=== PATIENT | female | born 1955 | race Caucasian/White ===

== ENCOUNTER 2019-04-04 21:50 | Emergency (ER) | payer MEDICARE, OTHER ==
[2019-04-04 22:38] LABS: Appearance CLEAR (CLEAR); Bilirubin NEGATIVE (NEGATIVE); Blood LARGE Ery/ul (0-5); Glucose NEGATIVE (NEGATIVE); Ketones NEGATIVE (NEGATIVE); Leukocyte Esterase MODERATE (NEGATIVE); Mucus SLIGHT /HPF (NEGATIVE); Nitrite NEGATIVE (NEGATIVE); Protein,Urine Dip NEGATIVE (Negative); Specific Gravity 1.004 (1.005-1.025); Urobilinogen NEGATIVE mg/dL (0-1); WBC 26-50 /HPF (0-5)
[2019-04-04 22:44] VITALS: PULSE 67; O2SAT 100
[2019-04-04 23:02] VITALS: BP 137/80
--- NOTE | 2019-04-04 23:04 | ERPHSYRPT ---
- History of Present Illness Time Seen by Provider: 04/04/19 21:53 Source: patient Exam Limitations: no limitations Patient Subjective Stated Complaint: pt states at 1999 pt began having urgency, frequency, burning and fullness of urination, pt states that the last 30 minutes there has been an increase in symptoms, pt states that she has IBS and had flare up, pt states that she has had poor oral intake Triage Nursing Assessment: pt ambulated into the er, pt is axo x3, c/o burning, frequency, urgency and pain when urinating, urine clear yellow color, pt states 3/10 pain with urination, no distention to abdomen, abdomen soft Physician History: Pt with dysuria and malaise today. hx of same many years ago. NO fever of abd pain or flank pain. Timing/Duration: today Activites at Onset: none Quality: burning, cramping Onset Location: urethral Pain Radiation: none Severity of Pain-Max: moderate Severity of Pain-Current: mild Prior abdominal problems: similar symptoms (UTI) Sexual intercourse history: non-contributory Modifying Factors: Improves With: urinating Associated Symptoms: urinary frequency Allergies/Adverse Reactions: latex Allergy (Verified 04/04/19 22:14) Sulfa (Sulfonamide Antibiotics) Allergy (Verified 04/04/19 22:14) Hx Tetanus, Diphtheria Vaccination/Date Given: No (unknown) Hx Influenza Vaccination/Date Given: Yes Hx Pneumococcal Vaccination/Date Given: Yes - Review of Systems Constitutional: No Fever, No Chills Eyes: No Symptoms Ears, Nose, & Throat: No Symptoms Respiratory: No Cough, No Dyspnea Cardiac: No Chest Pain, No Edema, No Syncope Abdominal/Gastrointestinal: No Abdominal Pain, No Nausea, No Vomiting, No Diarrhea Genitourinary Symptoms: Dysuria, Frequency, Urgency Musculoskeletal: No Back Pain, No Neck Pain Skin: No Rash Neurological: No Dizziness, No Focal Weakness, No Sensory Changes Psychological: No Symptoms Endocrine: No Symptoms All Other Systems: Reviewed and Negative - Past Medical History Pertinent Past Medical History: Yes Neurological History: No Pertinent History Cardiac History: No Pertinent History Respiratory History: No Pertinent History Endocrine Medical History: No Pertinent History Musculoskeletal History: No Pertinent History - Past Surgical History Past Surgical History: Yes Musculoskeletal: Orthopedic Surgery Other Surgical History: back surgery, foot surgery, femur surgery - Social History Smoking Status: Never smoker Exposure to second hand smoke: Yes (years ago) Drug Use: none Patient Lives Alone: No - Female History Hx Now: No - Nursing Vital Signs Nursing Vital Signs: Initial Vital Signs Temperature 97.8 F 04/04/19 21:54 Pulse Rate 90 04/04/19 21:54 Respiratory Rate 16 04/04/19 21:54 Blood Pressure 158/96 04/04/19 21:54 O2 Sat by Pulse Oximetry 99 04/04/19 21:54 Pain Scale Pain Intensity 3 - Physical Exam General Appearance: no apparent distress, alert Eye Exam: PERRL/EOMI, eyes nml inspection Ears, Nose, Throat Exam: normal ENT inspection, TMs normal, pharynx normal, moist mucous membranes Neck Exam: normal inspection, non-tender, supple, full range of motion Respiratory Exam: normal breath sounds, lungs clear, No respiratory distress Cardiovascular Exam: regular rate/rhythm, normal heart sounds, normal peripheral pulses Gastrointestinal/Abdomen Exam: soft, No tenderness, No mass Pelvic Exam: deferred Rectal Exam: deferred Back Exam: normal inspection, normal range of motion, No CVA tenderness, No vertebral tenderness Extremity Exam: normal inspection, normal range of motion, pelvis stable Neurologic Exam: alert, oriented x 3, cooperative, 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, normal mood/affect, sensation nml, No motor deficits Skin Exam: normal color, warm, dry Lymphatic Exam: No adenopathy SpO2: 100 Ordered Tests: Active Orders 24 hr Category Date Time Status CULTURE,URINE Stat Lab 04/04/19 22:18 Received UA W/RFX UR CULTURE Stat Lab 04/04/19 22:18 Completed Medication Summary Generic Name Dose Route Start Last Admin Trade Name Freq PRN Reason Stop Dose Admin Phenazopyridine HCl 200 mg 04/05/19 23:19 Pyridium 200 Mg PO 04/05/19 23:20 ONCE ONE Discontinued Medications Generic Name Dose Route Start Last Admin Trade Name Freq PRN Reason Stop Dose Admin Nitrofurantoin Macrocrystals 100 mg 04/04/19 23:19 Macrobid 100mg Capsule PO 04/04/19 23:20 STAT ONE Lab/Rad Data: Laboratory Results 04/04/19 Range/Units 22:18 Urine Color STRAW (YELLOW) Urine Appearance CLEAR (CLEAR) Urine pH 7.0 (5-6) Ur Specific [place] 1.004 (1.005-1.025) Urine Protein NEGATIVE (Negative) Urine Ketones NEGATIVE (NEGATIVE) Urine Blood LARGE (0-5) Les/ul Urine Nitrite NEGATIVE (NEGATIVE) Urine Bilirubin NEGATIVE (NEGATIVE) Urine Urobilinogen NEGATIVE (0-1) mg/dL Ur Leukocyte Esterase MODERATE (NEGATIVE) Urine WBC (Auto) 26-50 (0-5) /HPF Urine RBC (Auto) NONE (0-2) /HPF U Epithel Cells (Auto) NONE (FEW) /HPF Urine Bacteria (Auto) NONE (NEGATIVE) /HPF Urine Mucus (Auto) SLIGHT (NEGATIVE) /HPF Urine Culture Reflexed YES (NO) Urine Glucose NEGATIVE (NEGATIVE) mg/dL - Progress Progress: improved Air Movement: good Progress Note: 04/04/19 23:24 Pt given macrobid and pyridium after careful discussion of tx. Pt has IBS and very careful about what she takes. Blood Culture(s) Obtained: No Antibiotics given: Yes - Departure Departure Disposition: Home Clinical Impression: Cystitis Condition: Stable Critical Care Time: No Referrals: LE ESCOBAR [Primary Care Provider] - Additional Instructions: Drink plenty of water. Take meds as prescribed. Follow up with PCP in few days for recheck. Return to ER if worse. Prescriptions: Nitrofurantoin Macro 100 mg [Macrobid 100MG Capsule] 100 mg PO BID 10 Days #20 cap Phenazopyridine HCl 200 mg [Pyridium 200 mg] 200 mg PO TID #6 tablet
[2019-04-04] MEDS ORDERED: Macrobid 100MG Capsule PO ONE (23:19)
[2019-04-04] MEDS ORDERED: PYRIDIUM 200 MG ONE (23:24)
[2019-04-04] MEDS ORDERED: Macrobid 100MG Capsule ONE (23:24)
[2019-04-05] MEDS ORDERED: PYRIDIUM 200 MG PO ONE (23:19)
== END 2019-04-04 23:37 | disposition home or self-care (01) ==
LOC: ED 21:50
DX: N30.90 Cystitis, unspecified without hematuria (principal)
CPT/HCPCS: 81001; 87077; 87086; 87186; 99283; A9270-GY